=== PATIENT | female | born 2000 | race Hispanic/Latino ===

== ENCOUNTER 2020-01-25 12:14 | Emergency (ER) | payer BC ==
[2020-01-25 12:55] LABS: BASOPHILS % (AUTO) 0.5 % (0.0-5.0); EOSINOPHILS % (AUTO) 1.3 % (0.0-8.0); HEMATOCRIT 35.8 % (36-48); LYMPHOCYTES % (AUTO) 45.1 % (21.0-51.0); MEAN CORPUSCULAR HEMOGLOBIN 28.7 pg (27.0-33.0); MEAN CORPUSCULAR HGB CONC 34.4 g/dL (32.0-36.0); MEAN CORPUSCULAR VOLUME 83.6 fL (80-100); MONOCYTES % (AUTO) 13.5 % (3.0-13.0); NEUTROPHILS % (AUTO) 39.6 % (40.0-77.0); PLATELET COUNT (AUTO) 294 K/uL (130-400); RED BLOOD CELL COUNT(AUTO) 4.28 MIL/uL (4.00-5.50); RED CELL DISTRIBUTION WIDTH 11.2 % (11.0-15.5); WHITE BLOOD COUNT (AUTO) 3.9 K/uL (4.8-10.8)
[2020-01-25 13:04] LABS: CREATININE 0.4 mg/dL (0.5-1.5); POTASSIUM 3.9 mmol/L (3.5-5.1)
[2020-01-25 13:08] LABS: ALBUMIN 3.5 g/dL (3.5-5.0); BILIRUBIN,TOTAL 0.8 mg/dL (0.2-1.0); TOTAL PROTEIN, SERUM 6.6 g/dL (6.0-8.3)
[2020-01-25 13:57] LABS: APPEARANCE,URINE CLEAR (CLEAR); BILIRUBIN,URINE NEGATIVE (NEGATIVE); COLOR,URINE YELLOW (YELLOW); GLUCOSE, URINE (UA) NEGATIVE (NEGATIVE); KETONES,URINE NEGATIVE (NEGATIVE); LEUKOCYTE ESTERASE ,URINE SMALL (NEGATIVE); NITRATE,URINE NEGATIVE (NEGATIVE); OCCULT BLOOD,URINE NEGATIVE (NEGATIVE); PH,URINE 5.5 (5.0-8.0); PROTEIN,URINE NEGATIVE (NEGATIVE); UROBILINOGEN,URINE 0.2 mg/dL (0.2-1.0)
[2020-01-25 14:07] LABS: AMPHET/METH SCREEN,URINE NEGATIVE (NEGATIVE); BARBITURATE SCREEN, URINE NEGATIVE (NEGATIVE); BENZODIAZEPINES SCREEN,URINE NEGATIVE (NEGATIVE); CANNABINOID SCREEN,URINE NEGATIVE (NEGATIVE); COCAINE SCREEN,URINE NEGATIVE (NEGATIVE); OPIATE SCREEN,URINE NEGATIVE (NEGATIVE); PHENCYCLIDINE SCREEN,URINE NEGATIVE (NEGATIVE)
[2020-01-25 14:16] LABS: HCG,QUAL RESULT NEGATIVE (NEGATIVE)
[2020-01-25 14:26] LABS: BACTERIA,URINE Moderate /HPF (None Seen)
[2020-01-25 14:27] LABS: RBC,URINE 0-1 /HPF (0-1)
== END 2020-01-25 17:11 | disposition home or self-care (01) ==
LOC: EDH 12:14
DX: R42 Dizziness and giddiness (principal); I10 Essential (primary) hypertension; F41.9 Anxiety disorder, unspecified; Z90.49 Acquired absence of other specified parts of digestive tract
CPT/HCPCS: 36415; 80053; 80305; 81001; 81025; 82550; 84484; 85025; 87088; 93005

== ENCOUNTER 2020-09-09 16:20 | Observation (INO) | payer BC, MEDICAID ==
[~2020-09-09] VITALS: Ht 167.6 cm; Wt 122.9 kg
[2020-09-09 16:57] LABS: APPEARANCE,URINE Clear (CLEAR); BILIRUBIN,URINE Negative (NEGATIVE); COLOR,URINE Yellow (YELLOW); GLUCOSE, URINE (UA) Negative (NEGATIVE); KETONES,URINE Negative (NEGATIVE); LEUKOCYTE ESTERASE ,URINE Trace (NEGATIVE); NITRATE,URINE Negative (NEGATIVE); OCCULT BLOOD,URINE Negative (NEGATIVE); PROTEIN,URINE Negative (NEGATIVE); UROBILINOGEN,URINE 0.2 mg/dL (0.2-1.0)
[2020-09-09 17:07] LABS: BACTERIA,URINE Few /HPF (None Seen); MUCUS,URINE Few LPF (None Seen); RBC,URINE 0-1 /HPF (0-1); SQUAMOUS EPITHELIAL CELL,UR Few /HPF (0-2)
== END 2020-09-09 17:30 | disposition home or self-care (01) ==
LOC: EDH 16:20 → LDH 16:21
PROVIDERS: ADMIT Obstetrics & Gynecology; ATTEND Obstetrics & Gynecology
DX: O36.8130 Decreased fetal movements, third trimester, not applicable or unspecified (principal); O99.342 Other mental disorders complicating pregnancy, second trimester; F41.9 Anxiety disorder, unspecified; O16.2 Unspecified maternal hypertension, second trimester; Z79.899 Other long term (current) drug therapy; Z90.89 Acquired absence of other organs; Z3A.25 25 weeks gestation of pregnancy
CPT/HCPCS: 59025; 81001; 99284; G0378

== ENCOUNTER 2020-12-21 05:39 | Inpatient (IN) | payer MEDICAID ==
[~2020-12-21] VITALS: Ht 167.6 cm; Wt 127.9 kg
[2020-12-21] MEDS ORDERED: LACTATED RINGERS 1000ML 1,000 ML IV SCH (06:00)
[2020-12-21] MEDS ORDERED: CEFAZOLIN SODIUM 1 GM VIAL IVP PRN (06:00)
[2020-12-21] MEDS ORDERED: CALDOLOR 800MG+NS 250ML 250 ML IV PRN (06:00)
[2020-12-21 06:50] LABS: MEAN CORPUSCULAR HEMOGLOBIN 29.9 pg (27.0-33.0); MEAN CORPUSCULAR HGB CONC 33.8 g/dL (32.0-36.0); MEAN CORPUSCULAR VOLUME 88.2 fL (80-100); RED BLOOD CELL COUNT(AUTO) 4.42 MIL/uL (4.00-5.50); RED CELL DISTRIBUTION WIDTH 13.6 % (11.0-15.5); WHITE BLOOD COUNT (AUTO) 10.5 K/uL (4.8-10.8)
[2020-12-21 06:55] VITALS: BP 121/73
[2020-12-21] MEDS ORDERED: MORPHINE PF 100MG/10ML AMP IV ONE (08:49)
[2020-12-21] MEDS ORDERED: FENTANYL CITRATE PF 50 MCG/1 ML 2ML VIAL ONE (08:49)
[2020-12-21] MEDS ORDERED: CEFAZOLIN SODIUM 1 GM VIAL IVP ONE (09:00)
[2020-12-21] MEDS ORDERED: OXYTOCIN 10 USP UNITS/ML ONE (09:15)
[2020-12-21] MEDS ORDERED: METHYLERGONOVINE MALEATE 0.2 MG/1 ML ML ONE (09:20)
[2020-12-21] MEDS ORDERED: ONDANSETRON 4MG INJ ONE (09:25)
[2020-12-21] MEDS ORDERED: OXYTOCIN-LR 20 UNITS/1000 ML 1,000 ML IV ONE (09:52)
[2020-12-21] MEDS ORDERED: DEXTROSE 5 %-0.45 % NACL 1,000 ML IV PRN (10:00)
[2020-12-21] MEDS ORDERED: 0.9%NACL 10ML VIAL IVP PRN (10:00)
[2020-12-21] MEDS ORDERED: OXYTOCIN-LR 20 UNITS/1000 ML 1,000 ML IV PRN (10:00)
[2020-12-21] MEDS ORDERED: EPHEDRINE SULFATE 50 MG/ML AMPULE IVP PRN (10:15)
[2020-12-21] MEDS ORDERED: NALOXONE HCL 0.4 MG/1 ML ML IVP PRN ×3 (10:15)
[2020-12-21] MEDS ORDERED: DiphenhydrAMINE HCL 50 MG/ML VIAL IVP PRN (10:15)
[2020-12-21] MEDS ORDERED: MEPERIDINE-PF 25 MG/ML SYG IV PRN (10:15)
[2020-12-21] MEDS ORDERED: LORATADINE 10 MG TABLET PO PRN (10:15)
[2020-12-21 11:16] VITALS: BP 118/70
[2020-12-21] MEDS: ONDANSETRON 4MG INJ IVP PRN ×2 (11:25→12:51)
[2020-12-21] MEDS ORDERED: PROP50TA3 PO (11:48)
[2020-12-21 16:30] VITALS: BP 105/51
[2020-12-21] MEDS: PROMETHAZINE HCL 25 MG/ML 1ML AMPULE IM PRN (16:50)
[2020-12-21] MEDS: MEPERIDINE-PF 75 MG/ML SYG IM PRN (16:50)
[2020-12-21] MEDS: CALDOLOR 800MG+NS 250ML 250 ML IV SCH (17:25)
[2020-12-21 20:10] VITALS: BP 108/56
[2020-12-21 23:40] VITALS: BP 106/52
[2020-12-21 23:45] VITALS: BP 117/68
[2020-12-22] MEDS: CALDOLOR 800MG+NS 250ML 250 ML IV SCH (01:28)
[2020-12-22] MEDS: PROMETHAZINE HCL 25 MG/ML 1ML AMPULE IM PRN (01:54)
[2020-12-22] MEDS: MEPERIDINE-PF 75 MG/ML SYG IM PRN (01:55)
[2020-12-22 03:34] VITALS: BP 102/45
[2020-12-22] MEDS ORDERED: IBUPROFEN 600 MG TABLET ONE (05:07)
[2020-12-22 06:53] LABS: HEMATOCRIT 30.9 % (36-48); MEAN CORPUSCULAR HEMOGLOBIN 29.7 pg (27.0-33.0); MEAN CORPUSCULAR VOLUME 90.1 fL (80-100); RED BLOOD CELL COUNT(AUTO) 3.43 MIL/uL (4.00-5.50); RED CELL DISTRIBUTION WIDTH 13.6 % (11.0-15.5)
[2020-12-22 07:11] VITALS: BP 121/67
[2020-12-22] MEDS ORDERED: ACETAMINOPHEN 500 MG TABLET PO PRN (08:15)
[2020-12-22] MEDS ORDERED: ACETAMINOPHEN WITH CODEINE 1 TAB TAB PO PRN (08:15)
[2020-12-22] MEDS ORDERED: BISACODYL 10 MG SUPP.RECT RC PRN (08:15)
[2020-12-22] MEDS: DOCUSATE SODIUM 100 MG CAP PO SCH ×2 (08:36→21:14)
[2020-12-22] MEDS: SIMETHICONE 80 MG TAB.CHEW PO PRN ×4 (08:36→21:14)
[2020-12-22] MEDS: IBUPROFEN 800 MG TAB PO SCH ×2 (08:37→16:13)
[2020-12-22] MEDS: HYDROCODONE/ACETAMINOPHEN 5/325 MG TAB PO PRN ×2 (08:39→19:31)
[2020-12-22 09:13] LABS: HEPATITIS Bs ANTIGEN SCREEN P Negative (Negative)
[2020-12-22] MEDS ORDERED: IBUPROFEN 800 MG TAB PO SCH (10:00)
[2020-12-22 11:09] VITALS: BP 107/48
[2020-12-22 15:55] VITALS: BP 127/74
[2020-12-22 19:28] VITALS: BP 111/63
[2020-12-22 23:47] VITALS: BP 120/74
[2020-12-23] MEDS: IBUPROFEN 800 MG TAB PO SCH ×2 (00:19→08:52)
[2020-12-23 03:00] VITALS: BP 121/68
[2020-12-23] MEDS: HYDROCODONE/ACETAMINOPHEN 5/325 MG TAB PO PRN (06:09)
[2020-12-23 07:10] VITALS: BP 118/53
[2020-12-23] MEDS: SIMETHICONE 80 MG TAB.CHEW PO PRN (08:51)
[2020-12-23] MEDS: DOCUSATE SODIUM 100 MG CAP PO SCH (08:51)
[2020-12-23 11:16] VITALS: BP 123/66
== END 2020-12-23 12:40 | disposition home or self-care (01) | DRG 540 ==
LOC: LDH 05:39 → WSH 11:15
PROVIDERS: ADMIT Obstetrics & Gynecology; ATTEND Obstetrics & Gynecology
PROC: 10D00Z1 Extraction of Products of Conception, Low, Open Approach (ICD-10-PCS; principal; 2020-12-21 07:30)
DX: O36.63X0 Maternal care for excessive fetal growth, third trimester, not applicable or unspecified (principal); E66.9 Obesity, unspecified; O99.214 Obesity complicating childbirth; Z20.822 Contact with and (suspected) exposure to COVID-19; Z37.0 Single live birth; Z3A.39 39 weeks gestation of pregnancy
CPT/HCPCS: 36415; 59510; 85027; 86592; 86701; 86850; 86900; 86901; 87340; 87390; A4344; G0378; J0690; J1741; J2175; J2210; J2274; J2405; J2550; J2590; J3010; J7120; U0003

== ENCOUNTER 2022-04-24 15:14 | Emergency (ER) | payer OTHER, MEDICAID ==
[~2022-04-24] VITALS: Ht 170.2 cm; Wt 137.9 kg
[~2022-04-24 15:14] MED LIST: PROP50TA3 PO
[2022-04-24 15:36] LABS: APPEARANCE,URINE CLEAR (CLEAR); BILIRUBIN,URINE NEGATIVE (NEGATIVE); COLOR,URINE YELLOW (YELLOW); GLUCOSE, URINE (UA) NEGATIVE (NEGATIVE); KETONES,URINE NEGATIVE (NEGATIVE); LEUKOCYTE ESTERASE ,URINE TRACE (NEGATIVE); NITRATE,URINE NEGATIVE (NEGATIVE); OCCULT BLOOD,URINE NEGATIVE (NEGATIVE); PROTEIN,URINE TRACE mg/dL (NEGATIVE); UROBILINOGEN,URINE 0.2 mg/dL (0.2-1.0)
[2022-04-24 15:43] LABS: BACTERIA,URINE Few /HPF (None Seen); RBC,URINE None Seen /HPF (0-1)
[2022-04-24 17:02] VITALS: BP 136/79
== END 2022-04-24 17:04 | disposition home or self-care (01) ==
LOC: EDH 15:14
DX: O9A.211 Injury, poisoning and certain other consequences of external causes complicating pregnancy, first trimester (principal); R10.12 Left upper quadrant pain; Z3A.10 10 weeks gestation of pregnancy; V49.49XA Driver injured in collision with other motor vehicles in traffic accident, initial encounter; Y93.89 Activity, other specified; Y92.89 Other specified places as the place of occurrence of the external cause; Y99.8 Other external cause status
CPT/HCPCS: 76801; 81001

== ENCOUNTER 2022-10-06 15:55 | Observation (INO) | payer MEDICAID, OTHER ==
[~2022-10-06] VITALS: Ht 167.6 cm; Wt 132.4 kg
[2022-10-06 16:03] VITALS: BP 159/86
[2022-10-06] MEDS ORDERED: LACTATED RINGERS 1000ML 1,000 ML IV SCH (16:30)
[2022-10-06 17:09] LABS: APPEARANCE,URINE CLOUDY (CLEAR); BILIRUBIN,URINE NEGATIVE (NEGATIVE); COLOR,URINE YELLOW (YELLOW); GLUCOSE, URINE (UA) 30 mg/dL (NEGATIVE); KETONES,URINE 150 mg/dL (NEGATIVE); LEUKOCYTE ESTERASE ,URINE 500 Leu/uL (NEGATIVE); NITRATE,URINE NEGATIVE (NEGATIVE); OCCULT BLOOD,URINE NEGATIVE (NEGATIVE); PH,URINE 6.5 (5.0-8.0); PROTEIN,URINE 50 mg/dL (NEGATIVE); UROBILINOGEN,URINE 0.2 mg/dL (0.2-1.0)
[2022-10-06 17:17] LABS: AMPHET/METH SCREEN,URINE NEGATIVE (NEGATIVE); BARBITURATE SCREEN, URINE NEGATIVE (NEGATIVE); BENZODIAZEPINES SCREEN,URINE NEGATIVE (NEGATIVE); CANNABINOID SCREEN,URINE NEGATIVE (NEGATIVE); COCAINE SCREEN,URINE NEGATIVE (NEGATIVE); OPIATE SCREEN,URINE NEGATIVE (NEGATIVE); PHENCYCLIDINE SCREEN,URINE NEGATIVE (NEGATIVE)
[2022-10-06 17:48] LABS: BACTERIA,URINE FEW /HPF (None Seen); MUCUS,URINE RARE LPF (None Seen); SQUAMOUS EPITHELIAL CELL,UR MOD /HPF (0-2); WBC,URINE 26-50 /HPF (0-1)
== END 2022-10-06 18:15 | disposition home or self-care (01) ==
LOC: EDH 15:55 → LDH 16:08
PROVIDERS: ADMIT Obstetrics & Gynecology; ATTEND Obstetrics & Gynecology
DX: O26.893 Other specified pregnancy related conditions, third trimester (principal); R51.9 Headache, unspecified; Z3A.33 33 weeks gestation of pregnancy
CPT/HCPCS: 96360; 80305; 87088; 81001; G0378 ×2; G0379

== ENCOUNTER 2023-06-07 19:04 | Emergency (ER) | payer MEDICAID ==
[~2023-06-07] VITALS: Ht 170.2 cm; Wt 133.8 kg
[2023-06-07 19:36] LABS: BASOPHILS # (AUTO) 0.07 K/uL (0.00-0.20); BASOPHILS % (AUTO) 0.7 % (0.0-5.0); EOSINOPHILS % (AUTO) 1.1 % (0.0-8.0); HEMATOCRIT 38.2 % (36-48); IMMATURE GRANULOCYTE ABSOLUTE 0.03 K/uL (0-1); LYMPHOCYTES # (AUTO) 2.5 K/uL (1.0-4.8); LYMPHOCYTES % (AUTO) 26.1 % (21.0-51.0); MEAN CORPUSCULAR HEMOGLOBIN 29.4 pg (27.0-33.0); MEAN CORPUSCULAR HGB CONC 34.3 g/dL (32.0-36.0); MEAN CORPUSCULAR VOLUME 85.7 fL (79-99); MONOCYTES # (AUTO) 0.7 K/uL (0.1-1.0); MONOCYTES % (AUTO) 7.2 % (3.0-13.0); NEUTROPHILS # (AUTO) 6.1 K/uL (1.8-7.7); NEUTROPHILS % (AUTO) 64.6 % (40.0-77.0); PLATELET COUNT (AUTO) 274 K/uL (130-400); RED BLOOD CELL COUNT(AUTO) 4.46 MIL/uL (4.00-5.50); RED CELL DISTRIBUTION WIDTH 12.9 % (11.0-15.5); WHITE BLOOD COUNT (AUTO) 9.4 K/uL (4.8-10.8)
[2023-06-07] MEDS ORDERED: IBUP-2070 PO (21:47)
[2023-06-07 21:54] VITALS: BP 145/92; PULSE 88; RESP 16; O2SAT 98
== END 2023-06-07 22:05 | disposition home or self-care (01) ==
LOC: EDH 19:04
DX: O20.0 Threatened abortion (principal); O26.891 Other specified pregnancy related conditions, first trimester; R10.2 Pelvic and perineal pain; Z3A.01 Less than 8 weeks gestation of pregnancy
CPT/HCPCS: 36415; 76801; 84702; 85025; 86900; 86901

== ENCOUNTER 2023-11-27 16:08 | Emergency (ER) | payer MEDICAID ==
[~2023-11-27] VITALS: Ht 170.2 cm; Wt 131.5 kg
[~2023-11-27 16:08] MED LIST changes: +IBUP-2070 PO
[2023-11-27 16:43] LABS: APPEARANCE,URINE CLEAR (CLEAR); BILIRUBIN,URINE NEGATIVE (NEGATIVE); COLOR,URINE LIGHT-YELLOW (YELLOW); GLUCOSE, URINE (UA) NEGATIVE (NEGATIVE); KETONES,URINE NEGATIVE (NEGATIVE); LEUKOCYTE ESTERASE ,URINE 75 Leu/uL (NEGATIVE); NITRATE,URINE NEGATIVE (NEGATIVE); OCCULT BLOOD,URINE NEGATIVE (NEGATIVE); PH,URINE 5.5 (5.0-8.0); PROTEIN,URINE NEGATIVE (NEGATIVE); UROBILINOGEN,URINE 0.2 mg/dL (0.2-1.0)
[2023-11-27 16:48] LABS: ADD UA MICROSCOPIC YES
[2023-11-27 16:50] LABS: BACTERIA,URINE RARE /HPF (None Seen); SQUAMOUS EPITHELIAL CELL,UR FEW /HPF (0-2)
[2023-11-27 17:04] LABS: BASOPHILS # (AUTO) 0.07 K/uL (0.00-0.20); BASOPHILS % (AUTO) 1.1 % (0.0-5.0); EOSINOPHILS # (AUTO) 0.08 K/uL (0.00-0.70); EOSINOPHILS % (AUTO) 1.2 % (0.0-8.0); HEMATOCRIT 38.3 % (36-48); IMMATURE GRANULOCYTE ABSOLUTE 0.02 K/uL (0-1); LYMPHOCYTES # (AUTO) 2.6 K/uL (1.0-4.8); LYMPHOCYTES % (AUTO) 38.7 % (21.0-51.0); MEAN CORPUSCULAR HEMOGLOBIN 30.5 pg (27.0-33.0); MEAN CORPUSCULAR HGB CONC 34.5 g/dL (32.0-36.0); MEAN CORPUSCULAR VOLUME 88.5 fL (79-99); MONOCYTES # (AUTO) 0.5 K/uL (0.1-1.0); NEUTROPHILS # (AUTO) 3.4 K/uL (1.8-7.7); NEUTROPHILS % (AUTO) 51.7 % (40.0-77.0); PLATELET COUNT (AUTO) 238 K/uL (130-400); RED BLOOD CELL COUNT(AUTO) 4.33 MIL/uL (4.00-5.50); RED CELL DISTRIBUTION WIDTH 12.6 % (11.0-15.5); WHITE BLOOD COUNT (AUTO) 6.6 K/uL (4.8-10.8)
[2023-11-27 17:21] LABS: CREATININE 0.6 mg/dL (0.5-1.0); POTASSIUM 3.8 mmol/L (3.5-5.1)
[2023-11-27 17:49] LABS: ALBUMIN 3.6 g/dL (3.5-5.0); BILIRUBIN,TOTAL 0.2 mg/dL (0.2-1.0); TOTAL PROTEIN, SERUM 7.3 g/dL (6.0-8.3)
[2023-11-27] MEDS ORDERED: CEPH500B PO (18:54)
[2023-11-27 19:35] VITALS: BP 162/89; PULSE 89; RESP 16; O2SAT 100
== END 2023-11-27 21:19 | disposition home or self-care (01) ==
LOC: EDH 16:08
DX: O23.41 Unspecified infection of urinary tract in pregnancy, first trimester (principal); N39.0 Urinary tract infection, site not specified; O26.891 Other specified pregnancy related conditions, first trimester; R10.2 Pelvic and perineal pain; O20.9 Hemorrhage in early pregnancy, unspecified; Z3A.08 8 weeks gestation of pregnancy
CPT/HCPCS: 36415; 76801; 80053; 81001; 84702; 85025; 86900; 86901; 87088

== ENCOUNTER 2024-06-18 13:57 | Observation (INO) | payer BC, MEDICAID ==
[~2024-06-18] VITALS: Ht 170.2 cm; Wt 131.1 kg
[~2024-06-18 13:57] MED LIST changes: +CEPH500B PO
[2024-06-18 14:24] VITALS: BP 138/90; PULSE 91; RESP 18; TEMP 98.3
[2024-06-18 14:58] LABS: APPEARANCE,URINE CLEAR (CLEAR); BILIRUBIN,URINE NEGATIVE (NEGATIVE); COLOR,URINE LIGHT-YELLOW (YELLOW); GLUCOSE, URINE (UA) NEGATIVE (NEGATIVE); KETONES,URINE NEGATIVE (NEGATIVE); LEUKOCYTE ESTERASE ,URINE 500 Leu/uL (NEGATIVE); NITRATE,URINE NEGATIVE (NEGATIVE); OCCULT BLOOD,URINE NEGATIVE (NEGATIVE); PH,URINE 5.5 (5.0-8.0); PROTEIN,URINE NEGATIVE (NEGATIVE); UROBILINOGEN,URINE 0.2 mg/dL (0.2-1.0)
[2024-06-18 15:01] LABS: ADD UA MICROSCOPIC YES
[2024-06-18 15:03] LABS: BACTERIA,URINE RARE /HPF (None Seen); SQUAMOUS EPITHELIAL CELL,UR RARE /HPF (0-2)
[2024-06-18 15:44] LABS: BASOPHILS # (AUTO) 0.04 K/uL (0.00-0.20); BASOPHILS % (AUTO) 0.6 % (0.0-5.0); EOSINOPHILS # (AUTO) 0.06 K/uL (0.00-0.70); EOSINOPHILS % (AUTO) 0.9 % (0.0-8.0); HEMATOCRIT 34.2 % (36-48); IMMATURE GRANULOCYTE ABSOLUTE 0.02 K/uL (0-1); LYMPHOCYTES # (AUTO) 1.9 K/uL (1.0-4.8); MEAN CORPUSCULAR HEMOGLOBIN 29.8 pg (27.0-33.0); MEAN CORPUSCULAR HGB CONC 34.5 g/dL (32.0-36.0); MEAN CORPUSCULAR VOLUME 86.4 fL (79-99); MONOCYTES # (AUTO) 0.4 K/uL (0.1-1.0); MONOCYTES % (AUTO) 6.5 % (3.0-13.0); NEUTROPHILS # (AUTO) 3.9 K/uL (1.8-7.7); NEUTROPHILS % (AUTO) 61.7 % (40.0-77.0); PLATELET COUNT (AUTO) 194 K/uL (130-400); RED BLOOD CELL COUNT(AUTO) 3.96 MIL/uL (4.00-5.50); RED CELL DISTRIBUTION WIDTH 13.2 % (11.0-15.5); WHITE BLOOD COUNT (AUTO) 6.3 K/uL (4.8-10.8)
[2024-06-18 15:56] LABS: CREATININE 0.6 mg/dL (0.5-1.0); POTASSIUM 4.4 mmol/L (3.5-5.1)
[2024-06-18 15:57] LABS: INR 0.95 (0.85-1.15); PROTHROMBIN TIME 10.3 SEC (9.6-11.6)
[2024-06-18 16:01] LABS: ALBUMIN 2.8 g/dL (3.5-5.0); BILIRUBIN,TOTAL 0.4 mg/dL (0.2-1.0); URIC ACID 3.7 mg/dL (2.6-7.2)
[2024-06-18] MEDS ORDERED: acetaMINOPHEN 500 MG TABLET PO ONE (16:20)
[2024-06-18] MEDS: acetaMINOPHEN 500 MG TABLET ONE (16:39)
[2024-06-29] MEDS ORDERED: PREN1TAB26 PO (13:19)
[2024-06-29] MEDS ORDERED: LABE100T7 PO (13:19)
== END 2024-06-18 17:13 | disposition home or self-care (01) ==
LOC: EDH 13:57 → LDH 14:28
PROVIDERS: ADMIT Obstetrics & Gynecology; ATTEND Obstetrics & Gynecology
DX: O26.893 Other specified pregnancy related conditions, third trimester (principal); R51.9 Headache, unspecified; Z3A.36 36 weeks gestation of pregnancy; Z91.040 Latex allergy status; Z79.899 Other long term (current) drug therapy; Z86.2 Personal history of diseases of the blood and blood-forming organs and certain disorders involving the immune mechanism
CPT/HCPCS: 59025; 84550; 80053; 85025; 85384; 85610; 85730; 87086; 81001; 36415; G0378 ×2; G0379

== ENCOUNTER 2025-08-07 10:18 | Emergency (ER) | payer SELFPAY ==
[~2025-08-07] VITALS: Ht 170.2 cm; Wt 97.1 kg
--- NOTE | 2025-08-07 10:36 | ERN ---
General Chief Complaint: Earache Stated Complaint: EARACHE Time Seen by MD: 10:19 Time Seen by Midlevel: 10:19 Source: patient History of Present Illness Initial Comments Patient is a 25-year-old female presenting with severe right ear pain that has been ongoing for three weeks she reports worsening otalgia, decreased hearing in the affected side and purulent drainage. She was previously evaluated by an outside clinic and has already completed a course of Ciprodex and Augmentin with little to no relief. Allergies: Coded Allergies: No Known Drug Allergies (Unverified Allergy, Unknown, 01/25/20) Home Meds Reported Medications Vit/Iron Fumarate/FA ( Vitamins Tablet) 28 Mg Iron-800 Mcg Tablet, 1 TAB PO DAILY for 30 Days, #30 TAB 0 Refills 06/29/24 Past Medical History Past Medical History: No Pertinent History Past Surgical History: None Female( History) LMP: Jul 18, 2025 : 4 Para: 2 Aborts: 1 ROS Dictation CONSTITUTIONAL: Negative except for HPI HEAD/FACE: Negative except for HPI EENT: Negative except for HPI RESPIRATORY: Negative except for HPI GASTROINTESTINAL/ABDOMINAL: Negative except for HPI GENITOURINARY: Negative except for HPI MUSCULOSKELETAL: Negative except for HPI INTEGUMENTARY: Negative except for HPI NEUROLOGICAL/PSYCH: Negative except for HPI HEMATOLOGIC/LYMPHATIC: Negative except for HPI All Systems Negative, Except as noted above. 13 point review of systems assessed and all negative except for above. Physical Exam Physical Exam Dictation Vital Signs reviewed General Appearance: Alert, oriented x 3, no acute distress, well developed, nourished. Head and Face: non-traumatic. Eyes: PERRL, pink conjunctivas, eyelid no trauma, anterior chamber with arcus senilis. Ears: Severe otitis externa with significant purulent debris filling external auditory canal, tympanic membrane is not visualized Nose: No discharge, no bleeding. Oropharynx: Mouth normal, tongue pink, pharynx clear,no erythema, tonsils no exudates, no abscesses noted, mucous membrane moist Neck: Supple, non-tender, no thyromegaly, no masses, no JVD, no bruits Breast:Deferred Chest:No tenderness, no crepitus, no paradoxical movement, no retractions Lungs:Clear, well-ventilated, symmetric, no rales, no wheezing, no rhonchi, no stridor, good breath sounds bilaterally Heart: Regular rate, regular rhythm, no murmur, no gallops Vascular: no peripheral edema, Abdomen: Soft, positive bowel sounds, nondistended, no guarding, nontender, no rebound, no masses no hepatomegaly, no splenomegaly, no Gary's sign, no hernias. Rectal: Deferred Genital: Deferred Neurological: Normal speech, motor function intact, sensory function intact Musculoskeletal: Neck nontender, full range of motion, back nontender, full range of motion, Extremities: nontender, full range of motion Skin: Color pink, dry, no turgor, no rash, no lacerations, no abrasions, no contusions. Lymphatic: Deferred MDM MDM: Patient is a 25-year-old female presenting with severe right ear pain that has been ongoing for three weeks she reports worsening otalgia, decreased hearing in the affected side and purulent drainage. She was previously evaluated by an outside clinic and has already completed a course of Ciprodex an d Augmentin with little to no relief. On exam today she has severe otitis externa with significant purulent debris filling the external auditory canal. Tympanic membrane is not visualized. Large amount of debris was gently removed in the emergency department resulting in partial visualization of the canal and improved ability for topical medication to penetrate. No fever, vertigo, mastoid tenderness, facial weakness, or red flags for malignant otitis externa noted. Plan to discharge with repeat course of Ciprodex drops with strict ENT follow up Differential diagnosis: Otitis externa, otitis media, There are no social concerns with this patient. Prescription drug management Prescriptions will include: Ciprodex Medical management and examination interpretation discussions were had by me with other qualified healthcare professionals as indicated for the patient's care. ED Course Orders Procedure Category Date Status Time Morphine 2mg Syg PHA 08/07/25 Complete (Morphine 2mg Syg) 10:30 Ketorolac PHA 08/07/25 Complete Tromethamine 30mg/Ml 10:30 Current Medications Medications (Trade) Dose Ordered Sig/Katie Route PRN Reason Start Time Stop Time Status Last Admin Dose Admin Ketorolac Tromethamine (toRADol) 30 mg ONCE ONCE IM 08/07/25 10:30 08/07/25 10:36 DC Morphine Sulfate (morPHINE 2MG SYG) 2 mg ONCE ONCE IM 08/07/25 10:30 08/07/25 10:36 DC Vital Signs Date Time Temp Pulse Resp B/P (MAP) Pulse Ox O2 Delivery O2 Flow Rate FiO2 08/07/25 10:18 98.1 98 20 151/92 100 Room Air DX & DISP Disposition: Discharge Departure Impression: Primary Impression: Otitis externa Condition: Stable Scripts Ketorolac Tromethamine (Ketorolac Tromethamine) 10 Mg Tablet 1 TAB PO TID for pain for 5 Days, #15 TAB 0 Refills Prov: NICA MARLEY PAC 08/07/25 Ciprofloxacin HCl/Dexameth (Ciproflox-Dexameth Otic Susp) 0.3 %-0.1 % Drops.susp 4 DROP OTIC BID for 7 Days, #7.5 ML 0 Refills Prov: NICA MARLEY PAC 08/07/25 Additional Instructions: We cleaned a large amount of debris and pus from the ear canal so your eardrops can work properly. Use Ciprodex eardrops as prescribed. Make sure to lie on your side for at least 3-5 minutes after placing the drops so they reach the canal. You may have increased drainage for a day or two this can be normal with the medication reaches deeper into the canal. Follow up with the ENT as discussed. Referrals: SHANTHI MUNOZ MD (PCP) I have reviewed the case, and I agree with, Diagnosis and Plan I performed the substantive portion of the visit. I have reviewed and pe rsonally made and approve the management plan that is documented in the note by myself or the LISA. I acknowledge for responsibility for the patient's management plan. NICA MARLEY PAC Aug 07, 2025 10:36
[2025-08-07 12:01] VITALS: BP 134/78; PULSE 81; RESP 20; TEMP 98.1; O2SAT 100
== END 2025-08-07 12:19 | disposition home or self-care (01) ==
LOC: EDH 10:18
DX: H60.91 Unspecified otitis externa, right ear (principal); Z79.899 Other long term (current) drug therapy
CPT/HCPCS: 99284; 81025; 96372 ×2; J1885; J2270